=== PATIENT | female | born 1955 | race Caucasian/White ===

== ENCOUNTER → 2017-11-23 16:23 | Outpatient (CLI) | payer OTHER | END | disposition home or self-care (01) | LOC: D.MAMMO 10:00 | DX: N64.4 Mastodynia (principal) ==

== ENCOUNTER 2018-06-06 21:00 | Outpatient (CLI) | payer OTHER | END 2018-06-06 23:59 | disposition home or self-care (01) | LOC: D.MAMMO 21:00 | DX: N64.89 Other specified disorders of breast (principal) ==

== ENCOUNTER 2018-12-05 08:00 | Outpatient (CLI) | payer OTHER | END 2018-12-05 08:01 | disposition home or self-care (01) | LOC: D.MAMMO 08:00 | PROVIDERS: ATTEND Family Medicine | DX: R92.8 Other abnormal and inconclusive findings on diagnostic imaging of breast (principal) ==

== ENCOUNTER 2019-06-15 08:00 | Outpatient (CLI) | payer OTHER | END 2019-06-15 23:59 | disposition home or self-care (01) | LOC: D.MAMMO 08:00 | PROVIDERS: ATTEND Family Medicine | DX: R92.1 Mammographic calcification found on diagnostic imaging of breast (principal) ==

== ENCOUNTER 2019-08-03 09:00 | Outpatient (CLI) | payer OTHER | END 2019-08-03 10:00 | disposition home or self-care (01) | LOC: D.MAMMO 09:00 | PROVIDERS: ATTEND Family Medicine | DX: R92.8 Other abnormal and inconclusive findings on diagnostic imaging of breast (principal) ==

== ENCOUNTER 2019-11-22 08:00 | Outpatient (CLI) | payer OTHER | END 2019-11-22 16:02 | disposition home or self-care (01) | LOC: D.MAMMO 08:00 | PROVIDERS: ATTEND Surgery | DX: R92.0 Mammographic microcalcification found on diagnostic imaging of breast (principal) ==

== ENCOUNTER → 2020-01-08 13:09 | Outpatient (CLI) | payer OTHER | END | disposition home or self-care (01) | LOC: D.US 13:09 | PROVIDERS: ATTEND Surgery | DX: N61.0 Mastitis without abscess (principal) ==

== ENCOUNTER → 2020-04-30 13:20 | Outpatient (CLI) | payer OTHER | END | disposition home or self-care (01) | LOC: D.US 04-05 08:00 | PROVIDERS: ATTEND Surgery | DX: N61.0 Mastitis without abscess (principal) ==